=== PATIENT | female | born 1950 | race Caucasian/White ===

== ENCOUNTER → 2018-02-15 | Outpatient (CLI) | payer MEDICARE, BC ==
[2015-01-10 10:23] VITALS: BP 134/75
[~2018-02-15] MED LIST: ACETAMINOPHEN-O1 TAB PO; ACYCLOVIR800 MG PO; ATIVAN1 MG PO; DESYREL 100MG100 MG PO; ESTRACE1 MG PO; GOOD NEIGHBOR325 MG PO; REQUIP0.25 MG PO; VAGIFEM10 MCG VG; VITAMIN D35000 IU PO
== END ==
LOC: RAD 11:41
DX: M25.551 Pain in right hip (principal); Z96.642 Presence of left artificial hip joint

== ENCOUNTER 2018-03-03 09:30 | Outpatient (RCR) | payer MEDICARE, BC ==
[2015-01-10 10:23] VITALS: BP 134/75
== END 2018-03-03 10:00 | disposition home or self-care (01) ==
LOC: PT 09:30
DX: M16.11 Unilateral primary osteoarthritis, right hip (principal); Z96.642 Presence of left artificial hip joint
CPT/HCPCS: G8978-GP; G8979-GP

== ENCOUNTER → 2019-03-06 | Outpatient (CLI) | payer MEDICARE, BC ==
[2015-01-10 10:23] VITALS: BP 134/75
[2019-03-06 11:58] LABS: EOS # 0.1 (0.04-0.40); EOS % 1.3 % (1.0-5.0); HEMATOCRIT 44.3 % (37.0-47.0); HEMOGLOBIN 14.5 g/dL (12.5-16.0); LYMPH# 1.2 (1.50-4.00); MEAN CELL VOLUME 96 fl (78-100); MEAN CORPUSCULAR HEMOGLOBIN 31 pg (27-31); MEAN CORPUSCULAR HGB CONC 33 g/dL (33-37); MEAN PLATELET VOLUME 11.8 fl (7.4-10.4); MONO # 0.6 (0.20-0.80); NEU # 5.5 (1.40-6.50); PLATELET COUNT 236 K/mm3 (130-400); RED BLOOD COUNT 4.63 M/mm3 (4.10-5.30); WHITE BLOOD COUNT 7.4 K/mm3 (4.8-10.8)
[2019-03-06 12:43] LABS: ALBUMIN 4.8 g/dL (3.4-4.8); CALCIUM 10.5 mg/dL (8.4-10.2); POTASSIUM 4.3 mmol/L (3.5-5.1); TOTAL BILIRUBIN 0.4 mg/dL (0.2-1.2); TOTAL PROTEIN 7.6 g/dL (6.2-8.1)
[2019-03-06 13:04] LABS: ERYTHROCYTE SEDIMENTATION RATE 3 mm/hr (0-30)
== END ==
LOC: LAB 11:40
PROVIDERS: Internal Medicine
DX: Z12.11 Encounter for screening for malignant neoplasm of colon (principal); D64.9 Anemia, unspecified; K51.90 Ulcerative colitis, unspecified, without complications; E78.5 Hyperlipidemia, unspecified; E03.9 Hypothyroidism, unspecified; R20.2 Paresthesia of skin

== ENCOUNTER → 2020-04-09 | Outpatient (CLI) | payer MEDICARE, BC ==
[2015-01-10 10:23] VITALS: BP 134/75
[2020-04-09 15:18] LABS: EOS # 0.1 (0.04-0.40); HEMATOCRIT 43.4 % (37.0-47.0); HEMOGLOBIN 14.2 g/dL (12.5-16.0); LYMPH# 1.5 (1.50-4.00); MEAN CELL VOLUME 98 fl (78-100); MEAN CORPUSCULAR HEMOGLOBIN 32 pg (27-31); MEAN CORPUSCULAR HGB CONC 33 g/dL (33-37); MEAN PLATELET VOLUME 11.9 fl (7.4-10.4); MONO # 0.8 (0.20-0.80); NEU # 4.5 (1.40-6.50); PLATELET COUNT 222 K/mm3 (130-400); RED BLOOD COUNT 4.44 M/mm3 (4.10-5.30); RED CELL DISTRIBUTION WIDTH 12.4 % (11.5-14.5)
[2020-04-09 15:31] LABS: ALBUMIN 4.4 g/dL (3.4-4.8); POTASSIUM 3.8 mmol/L (3.5-5.1)
[2020-04-09 15:32] LABS: CALCIUM 9.4 mg/dL (8.3-10.5)
[2020-04-09 15:33] LABS: TOTAL PROTEIN 7.2 g/dL (6.2-8.1)
[2020-04-09 15:35] LABS: TOTAL BILIRUBIN 0.3 mg/dL (0.2-1.2)
[2020-04-09 16:15] LABS: ERYTHROCYTE SEDIMENTATION RATE 7 mm/hr (0-30)
== END ==
LOC: LAB 15:03
PROVIDERS: Internal Medicine
DX: Z12.11 Encounter for screening for malignant neoplasm of colon (principal); K51.90 Ulcerative colitis, unspecified, without complications; E78.5 Hyperlipidemia, unspecified; K90.9 Intestinal malabsorption, unspecified; E03.9 Hypothyroidism, unspecified; D64.9 Anemia, unspecified; R20.2 Paresthesia of skin

== ENCOUNTER → 2020-04-30 | Outpatient (CLI) | payer MEDICARE, BC ==
[2015-01-10 10:23] VITALS: BP 134/75
[2020-04-30 16:19] LABS: PROTHROMBIN TIME 9.2 SECONDS (9.0-12.0)
[2020-04-30 16:33] LABS: PARTIAL THROMBOPLASTIN TIME 21.8 SECONDS (21.0-32.0)
== END ==
LOC: LAB 15:29
PROVIDERS: Internal Medicine
DX: R23.3 Spontaneous ecchymoses (principal)

== ENCOUNTER → 2021-04-07 | Outpatient (CLI) | payer BC, MEDICARE ==
[2021-04-07 14:58] LABS: BASO # 0.05 (0.02-0.10); EOS # 0.12 (0.04-0.40); EOS % 1.6 % (1.0-5.0); HEMATOCRIT 42.4 % (37.0-47.0); HEMOGLOBIN 14.1 g/dL (12.5-16.0); LYMPH# 1.57 (1.50-4.00); MEAN CELL VOLUME 98 fl (78-100); MEAN CORPUSCULAR HEMOGLOBIN 33 pg (27-31); MEAN CORPUSCULAR HGB CONC 33 g/dL (33-37); MEAN PLATELET VOLUME 11.4 fl (7.4-10.4); MONO # 0.72 (0.20-0.80); NEU # 4.89 (1.40-6.50); PLATELET COUNT 232 K/mm3 (130-400); RED BLOOD COUNT 4.33 M/mm3 (4.10-5.30); WHITE BLOOD COUNT 7.4 K/mm3 (4.8-10.8)
[2021-04-07 15:12] LABS: ALBUMIN 4.5 g/dL (3.4-4.8); POTASSIUM 4.3 mmol/L (3.5-5.1)
[2021-04-07 15:13] LABS: CALCIUM 9.7 mg/dL (8.3-10.5)
[2021-04-07 15:14] LABS: TOTAL PROTEIN 7.5 g/dL (6.2-8.1)
[2021-04-07 15:16] LABS: TOTAL BILIRUBIN 0.4 mg/dL (0.2-1.2)
[2021-04-07 17:23] LABS: ERYTHROCYTE SEDIMENTATION RATE 7 mm/hr (0-30)
[2021-04-08 02:07] LABS: T3 TOTAL 110 ng/dL (58-159)
== END ==
LOC: LAB 14:44
PROVIDERS: Internal Medicine
DX: E78.5 Hyperlipidemia, unspecified (principal); E03.9 Hypothyroidism, unspecified; K90.9 Intestinal malabsorption, unspecified; K51.90 Ulcerative colitis, unspecified, without complications

== ENCOUNTER → 2022-05-26 | Outpatient (CLI) | payer BC, MEDICARE ==
[2022-05-26 17:15] LABS: BASO # 0.05 K/mm3 (0.02-0.10); EOS # 0.16 K/mm3 (0.04-0.40); EOS % 2.2 % (1.0-5.0); HEMOGLOBIN 12.7 g/dL (12.5-16.0); MEAN CELL VOLUME 95 fl (78-100); MEAN CORPUSCULAR HEMOGLOBIN 31 pg (27-31); MEAN CORPUSCULAR HGB CONC 33 g/dL (33-37); MEAN PLATELET VOLUME 11.5 fl (7.4-10.4); MONO # 0.72 K/mm3 (0.20-0.80); PLATELET COUNT 228 K/mm3 (130-400); RED BLOOD COUNT 4.11 M/mm3 (4.10-5.30); RED CELL DISTRIBUTION WIDTH 12.2 % (11.5-14.5); WHITE BLOOD COUNT 7.3 K/mm3 (4.8-10.8)
[2022-05-26 17:27] LABS: ALBUMIN 4.1 g/dL (3.4-4.8); POTASSIUM 4.1 mmol/L (3.5-5.1); SODIUM 142 mmol/L (136-145)
[2022-05-26 17:28] LABS: CALCIUM 9.7 mg/dL (8.3-10.5)
[2022-05-26 17:29] LABS: GLUCOSE 99 mg/dL (65-105); TOTAL PROTEIN 6.7 g/dL (6.2-8.1)
[2022-05-26 17:30] LABS: CARBON DIOXIDE 24 mmol/L (23-31)
[2022-05-26 17:31] LABS: TOTAL BILIRUBIN 0.3 mg/dL (0.2-1.2)
[2022-05-26 17:35] LABS: AST-SGOT 16 U/L (5-34)
[2022-05-26 17:36] LABS: ALT/SGPT 17 U/L (0-55)
[2022-05-26 18:08] LABS: URINE APPEARANCE CLEAR; URINE BILIRUBIN NEGATIVE (NEGATIVE); URINE BLOOD 250 ery/uL (NEGATIVE); URINE COLOR YELLOW; URINE GLUCOSE NEGATIVE (NEGATIVE); URINE KETONE NEGATIVE (NEGATIVE); URINE LEUKOCYTE ESTERASE TRACE (NEGATIVE); URINE NITRATE NEGATIVE (NEGATIVE); URINE PROTEIN(semi-quant) NEGATIVE (NEGATIVE); URINE UROBILINOGEN NORMAL (NORMAL); URINE WBC 0-1 /hpf (0-3)
[2022-05-26 18:36] LABS: ERYTHROCYTE SEDIMENTATION RATE 19 mm/hr (0-30)
== END ==
LOC: LAB 16:54
PROVIDERS: Internal Medicine
DX: Z12.39 Encounter for other screening for malignant neoplasm of breast (principal); M47.812 Spondylosis without myelopathy or radiculopathy, cervical region; M48.02 Spinal stenosis, cervical region; M54.16 Radiculopathy, lumbar region; M16.9 Osteoarthritis of hip, unspecified; M85.80 Other specified disorders of bone density and structure, unspecified site; E78.5 Hyperlipidemia, unspecified; K51.90 Ulcerative colitis, unspecified, without complications; J30.9 Allergic rhinitis, unspecified; N39.0 Urinary tract infection, site not specified; E03.9 Hypothyroidism, unspecified; K90.9 Intestinal malabsorption, unspecified; G25.81 Restless legs syndrome; G89.29 Other chronic pain; F41.1 Generalized anxiety disorder

== ENCOUNTER → 2022-06-01 | Outpatient (CLI) | payer MEDICARE, BC | LOC: LAB 15:48 | DX: M47.812 Spondylosis without myelopathy or radiculopathy, cervical region (principal); M70.61 Trochanteric bursitis, right hip; J30.9 Allergic rhinitis, unspecified; E05.90 Thyrotoxicosis, unspecified without thyrotoxic crisis or storm; F41.1 Generalized anxiety disorder; E03.9 Hypothyroidism, unspecified; G89.29 Other chronic pain ==

== ENCOUNTER → 2022-06-02 | Outpatient (CLI) | payer MEDICARE, BC | LOC: RAD 13:00 | DX: E05.90 Thyrotoxicosis, unspecified without thyrotoxic crisis or storm (principal) ==

== ENCOUNTER → 2022-06-09 | Outpatient (CLI) | payer BC, MEDICARE ==
[2022-06-09 23:47] LABS: T3 FREE 5.3 pg/mL (1.7-3.7)
== END ==
LOC: LAB 15:03
PROVIDERS: Internal Medicine
DX: N39.0 Urinary tract infection, site not specified (principal); J30.9 Allergic rhinitis, unspecified; M54.12 Radiculopathy, cervical region; M47.812 Spondylosis without myelopathy or radiculopathy, cervical region; E03.9 Hypothyroidism, unspecified; G89.29 Other chronic pain; F41.1 Generalized anxiety disorder; M70.61 Trochanteric bursitis, right hip; E05.90 Thyrotoxicosis, unspecified without thyrotoxic crisis or storm; R79.89 Other specified abnormal findings of blood chemistry

== ENCOUNTER 2023-08-31 09:05 | Outpatient (RCR) | payer BC, MEDICARE ==
[2023-08-17 10:22] VITALS: BP_SYST 109
[2023-08-24 09:40] VITALS: BP 125/73
[~2023-08-31] VITALS: Ht 175.3 cm; Wt 61.4 kg
[~2023-08-31 09:05] MED LIST changes: +ESTRACE0.5 MG PO; +LORAZEPAM0.5 M1 PO; +PERCOCET 325 MG1 TA2 PO; +PROGESTERONE200 MG PO; +ROPINIROLE HY0.25 MG PO; +TAPAZOLE 5MG TAB5 MG PO; +TENORMIN25 MG PO
[2023-08-31 09:19] VITALS: BP 138/78
== END 2023-09-16 | disposition home or self-care (01) ==
LOC: AMSURD
DX: E05.00 Thyrotoxicosis with diffuse goiter without thyrotoxic crisis or storm (principal)
CPT/HCPCS: J2930; J7050

== ENCOUNTER → 2023-11-05 | Outpatient (CLI) | payer MEDICARE, BC ==
[2023-11-05 17:15] LABS: BASO # 0.07 K/mm3 (0.02-0.10); EOS # 0.19 K/mm3 (0.04-0.40); EOS % 2.4 % (1.0-5.0); HEMATOCRIT 41.9 % (37.0-47.0); HEMOGLOBIN 13.9 g/dL (12.5-16.0); LYMPH# 1.38 K/mm3 (1.50-4.00); MEAN CELL VOLUME 97 fl (78-100); MEAN CORPUSCULAR HEMOGLOBIN 32 pg (27-31); MEAN CORPUSCULAR HGB CONC 33 g/dL (33-37); MEAN PLATELET VOLUME 11.3 fl (7.4-10.4); MONO # 0.88 K/mm3 (0.20-0.80); NEU # 5.49 K/mm3 (1.40-6.50); PLATELET COUNT 215 K/mm3 (130-400); RED BLOOD COUNT 4.34 M/mm3 (4.10-5.30)
[2023-11-05 17:18] LABS: ALBUMIN 4.5 g/dL (3.4-4.8)
[2023-11-05 17:19] LABS: CALCIUM 9.8 mg/dL (8.3-10.5)
[2023-11-05 17:21] LABS: TOTAL PROTEIN 6.9 g/dL (6.2-8.1)
[2023-11-05 17:23] LABS: TOTAL BILIRUBIN 0.3 mg/dL (0.2-1.2)
== END ==
LOC: LAB 16:54
PROVIDERS: Internal Medicine
DX: E78.5 Hyperlipidemia, unspecified (principal); E05.90 Thyrotoxicosis, unspecified without thyrotoxic crisis or storm; R73.9 Hyperglycemia, unspecified